=== PATIENT | female | born 1995 | race Caucasian/White ===

== ENCOUNTER 2017-03-21 18:43 | Emergency (ER) | payer OTHER ==
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
[~2017-03-21 18:43] MED LIST: MOTRIN600 M2 PO; NAPROSYN500 MG PO; NO MEDICATIONS; ROBAXIN500 MG PO; SEROQUEL; VISTARIL; ZOFRAN PO
[2017-03-21] MEDS ORDERED: CITALOPRAM HBR40 MG PO (18:47)
[2017-03-21] MEDS ORDERED: NEURONTIN100 MG PO (18:47)
== END 2017-03-21 21:28 | disposition home or self-care (01) ==
LOC: SED 18:43
DX: S00.83XA Contusion of other part of head, initial encounter (principal); R07.89 Other chest pain; F32.9 Major depressive disorder, single episode, unspecified; F41.9 Anxiety disorder, unspecified; F17.210 Nicotine dependence, cigarettes, uncomplicated; W50.1XXA Accidental kick by another person, initial encounter; Z88.0 Allergy status to penicillin; Z79.899 Other long term (current) drug therapy
CPT/HCPCS: 70450; 70486; 71020; 99284